=== PATIENT | female | born 1970 | race Caucasian/White ===

== ENCOUNTER 2017-11-19 22:42 | Emergency (ER) | payer MEDICAID ==
[~2017-11-19] VITALS: Ht 157.5 cm; Wt 46.7 kg
[~2017-11-19 22:42] MED LIST: ALBU8.5H8 INH; CLOT15CR10 TP; CYAN100067 PO; LACT10SO66 PO; PANT40TA4 PO; PARO-41 PO; PHEN51CR RC; PROP10TA10 PO; THIA100T13 PO; TRAM50TA92 PO; TRAZ-123 PO
[2017-11-19 23:00] VITALS: BP_SYST 121
[2017-11-20 00:06] LABS: BASOPHILS % (AUTO) 0.3 % (0.0-2.0); EOSINOPHILS # (AUTO) 0.3 K/uL (0.0-0.4); EOSINOPHILS % (AUTO) 2.8 % (0.0-4.0); HEMATOCRIT 24.5 % (36-48); HEMOGLOBIN 8.4 g/dL (12.0-16.0); LYMPHOCYTES # (AUTO) 1.4 K/uL (1.0-5.5); LYMPHOCYTES % (AUTO) 14.5 % (20.5-51.5); MEAN CORPUSCULAR HEMOGLOBIN 36 pg (27-31); MEAN CORPUSCULAR HGB CONC 34 % (32-36); MEAN CORPUSCULAR VOLUME 105 fL (79.0-98.0); MONOCYTES % (AUTO) 10.4 % (1.7-9.3); NEUTROPHILS # (AUTO) 6.6 K/uL (1.8-7.7); PLATELET COUNT (AUTO) 94 K/uL (130-430); RED BLOOD CELL COUNT(AUTO) 2.33 MIL/uL (4.2-6.2); RED CELL DISTRIBUTION WIDTH 16.1 % (9.0-15.0); WHITE BLOOD COUNT (AUTO) 9.3 K/uL (4.8-10.8)
[2017-11-20 00:09] LABS: BILIRUBIN,URINE 3+ (NEGATIVE); BLOOD, URINE 2+ (NEGATIVE); CLARITY/URINE CLEAR (CLEAR); COLOR,URINE YELLOW (YELLOW); GLUCOSE,URINE NEGATIVE (NEGATIVE); KETONES,URINE NEGATIVE (NEGATIVE); LEUKOCYTE ESTERASE ,URINE NEGATIVE (NEGATIVE); NITRITE, URINE NEGATIVE (NEGATIVE); PH,URINE 5.5 (5.0-8.0); PROTEIN URINE NEGATIVE (NEGATIVE)
[2017-11-20 00:17] LABS: CREATININE 0.8 mg/dL (0.55-1.30); POTASSIUM 3.8 mmol/L (3.5-5.1)
[2017-11-20 00:19] LABS: INR 1.7 (0.8-1.2)
[2017-11-20 00:23] LABS: ALBUMIN 2.7 g/dL (3.4-4.8)
[2017-11-20 00:31] LABS: TOTAL BILIRUBIN 15.8 mg/dL (0.0-1.0)
[2017-11-20 00:44] LABS: PROTHROMBIN TIME 17.9 SECS (9.5-12.5)
[2017-11-20 00:45] LABS: BACTERIA,URINE FEW /HPF (None Seen); WBC,URINE 0-3 /HPF (0-3)
[2017-11-20] MEDS ORDERED: DIPHENHYDRAMINE INJ 50 MG/ML VIAL IM ONE (03:15)
[2017-11-20] MEDS ORDERED: MORPHINE 4 MG/ML INJ. SYRINGE IVP ONE (03:15)
[2017-11-20 03:30] VITALS: BP_SYST 110
== END 2017-11-20 03:30 | disposition home or self-care (01) ==
LOC: SED 22:42
DX: K74.60 Unspecified cirrhosis of liver (principal); D64.9 Anemia, unspecified; J44.9 Chronic obstructive pulmonary disease, unspecified; N18.6 End stage renal disease; F41.9 Anxiety disorder, unspecified; F32.9 Major depressive disorder, single episode, unspecified; Z79.899 Other long term (current) drug therapy; F17.200 Nicotine dependence, unspecified, uncomplicated
CPT/HCPCS: 36415; 71045; 74176; 80053; 81000; 82140; 83605; 85025; 85610; 85730; 87040; 87086; 96372; 99285; J1200; J2270

== ENCOUNTER 2017-12-05 04:26 | Emergency (ER) | payer MEDICAID ==
[~2017-12-05] VITALS: Ht 157.5 cm; Wt 49.0 kg
[~2017-12-05 04:26] MED LIST changes: -ALBU8.5H8 INH; -CLOT15CR10 TP; +CYAN100010 PO; -CYAN100067 PO; +FURO-149 PO; +HYDR-551 PO; +SPIR25TA PO
[2017-12-05 04:31] VITALS: BP_SYST 93
[2017-12-05 05:33] LABS: BILIRUBIN,URINE 3+ (NEGATIVE); BLOOD, URINE 1+ (NEGATIVE); CLARITY/URINE CLEAR (CLEAR); COLOR,URINE YELLOW (YELLOW); GLUCOSE,URINE TRACE (NEGATIVE); KETONES,URINE TRACE (NEGATIVE); LEUKOCYTE ESTERASE ,URINE 2+ (NEGATIVE); NITRITE, URINE NEGATIVE (NEGATIVE); PH,URINE 5.5 (5.0-8.0); PROTEIN URINE NEGATIVE (NEGATIVE)
[2017-12-05] MEDS ORDERED: ONDA4TAB22 PO (05:52)
[2017-12-05] MEDS ORDERED: PROC5TAB PO (05:52)
[2017-12-05] MEDS ORDERED: FERR-57 PO (05:52)
[2017-12-05] MEDS ORDERED: PROP10TA10 PO (05:52)
[2017-12-05] MEDS ORDERED: PRO10 PO (05:52)
[2017-12-05] MEDS ORDERED: TRAM50TA92 PO (05:52)
[2017-12-05] MEDS ORDERED: MORP15TA PO (05:52)
[2017-12-05] MEDS ORDERED: CEPH-568 PO (05:52)
[2017-12-05 05:58] LABS: BACTERIA,URINE MODERATE /HPF (None Seen)
[2017-12-05] MEDS ORDERED: MORPHINE 2 MG/ML INJ. SYRINGE IM ONE (06:00)
[2017-12-05] MEDS ORDERED: MORPHINE 4 MG/ML INJ. SYRINGE IVP ONE (06:00)
[2017-12-05] MEDS ORDERED: cefTRIAXone 1 GM IVPB PREMIX 50 ML IV ONE (06:00)
[2017-12-05] MEDS ORDERED: MORPHINE 2 MG/ML INJ. SYRINGE IVP ONE (06:30)
[2017-12-05] MEDS ORDERED: NACL 0.9% 1,000 ML IV ONE (06:40)
[2017-12-05 07:30] VITALS: BP_SYST 98
[2017-12-19] MEDS ORDERED: TEMA15CA5 PO (23:07)
[2017-12-19] MEDS ORDERED: THIA100T70 PO (23:07)
== END 2017-12-05 07:30 | disposition home or self-care (01) ==
LOC: SED 04:26
DX: N39.0 Urinary tract infection, site not specified (principal); J44.9 Chronic obstructive pulmonary disease, unspecified; F41.9 Anxiety disorder, unspecified; F32.9 Major depressive disorder, single episode, unspecified; Z86.2 Personal history of diseases of the blood and blood-forming organs and certain disorders involving the immune mechanism; Z88.1 Allergy status to other antibiotic agents; Z79.899 Other long term (current) drug therapy
CPT/HCPCS: 81000; 87086; 87186; 96365; 96375; 99284; J0696; J2270; J7030; 96374

== ENCOUNTER 2017-12-18 05:28 | Emergency (ER) | payer MEDICAID ==
[~2017-12-18] VITALS: Ht 157.5 cm; Wt 51.7 kg
[2017-12-18 05:28] VITALS: BP_SYST 110
[~2017-12-18 05:28] MED LIST changes: +CEPH-568 PO; -CYAN100010 PO; +CYAN100067 PO; +FERR-57 PO; +FLUO10CA65 PO; -HYDR-551 PO; -LACT10SO66 PO; +MORP15TA PO; +ONDA4TAB22 PO; -PHEN51CR RC; +PROC5TAB PO
--- NOTE | 2017-12-18 05:30 | NUR ---
Placed in room 06 . Placed on welder gas, blood pressure machine and pulse oximeter. To gown for exam. Side rails up. Report given to KATHRYN Messina.
--- NOTE | 2017-12-18 05:40 | NUR ---
Patient brought to ER by BLS from home C/O 5/10 diffuse abdominal pain since midnight. Also C/O diarrhea. HX liver cirrhosis. Mild confusion and upper extremities tremors noted. +2, abdomen large distended, tender with palpation. Generalized jaundice, sclera icterus. Pitting edema on lower extremities. Calm and cooperative, AAOx2, unlabored breathing, no signs of acute distress.
--- NOTE | 2017-12-18 05:46 | NUR ---
ER MD Bhakta at bedside evaluating the patient
--- NOTE | 2017-12-18 06:00 | NUR ---
# 22 gauge angiocath placed to RIGHT AC. Use of asceptic technique. Opsite placed over site. Blood return noted. Blood for lab drawn from site. Flushed with 10 cc of normal saline. No evidence of infiltration noted. Patient tolerated well.
[2017-12-18] MEDS ORDERED: NACL 0.9% 1,000 ML IV ONE (06:06)
--- NOTE | 2017-12-18 06:27 | NUR ---
Medication reconciliation completed with information provided by - Patient states no changes in home meds. Any prior medication reconciliation on file was reviewed and corrected.
[2017-12-18 06:37] LABS: HEMATOCRIT 22.9 % (36-48); HEMOGLOBIN 7.8 g/dL (12.0-16.0); MEAN CORPUSCULAR HEMOGLOBIN 32 pg (27-31); MEAN CORPUSCULAR HGB CONC 34 % (32-36); MEAN CORPUSCULAR VOLUME 94 fL (79.0-98.0); PLATELET COUNT (AUTO) 102 K/uL (130-430); RED BLOOD CELL COUNT(AUTO) 2.43 MIL/uL (4.2-6.2); RED CELL DISTRIBUTION WIDTH 18.3 % (9.0-15.0); WHITE BLOOD COUNT (AUTO) 8.7 K/uL (4.8-10.8)
[2017-12-18 06:38] LABS: BILIRUBIN,URINE 3+ (NEGATIVE); BLOOD, URINE 2+ (NEGATIVE); CLARITY/URINE SL HAZY (CLEAR); COLOR,URINE ORANGE (YELLOW); GLUCOSE,URINE TRACE (NEGATIVE); KETONES,URINE TRACE (NEGATIVE); LEUKOCYTE ESTERASE ,URINE NEGATIVE (NEGATIVE); NITRITE, URINE NEGATIVE (NEGATIVE); PH,URINE 5.5 (5.0-8.0); PROTEIN URINE NEGATIVE (NEGATIVE)
[2017-12-18 06:38] LABS: CALCIUM 8.2 mg/dL (8.4-11.0); CREATININE 1.08 mg/dL (0.55-1.30); POTASSIUM 3.7 mmol/L (3.5-5.1)
[2017-12-18 06:42] LABS: INR 1.6 (0.8-1.2); PROTHROMBIN TIME 16.4 SECS (9.5-12.5)
[2017-12-18 06:45] LABS: ALBUMIN 2.1 g/dL (3.4-4.8); TOTAL BILIRUBIN 13.7 mg/dL (0.0-1.0)
[2017-12-18 06:57] LABS: BACTERIA,URINE FEW /HPF (None Seen); WBC,URINE 0-3 /HPF (0-3)
[2017-12-18 06:59] LABS: BARBITURATE, URINE NEGATIVE (NEG <=200); BENZODIAZEPINE, URINE POSITIVE (NEG <=150); CANNABINOID, URINE NEGATIVE (NEG <=50); COCAINE, URINE NEGATIVE (NEG <=150); METHAMPHETAMINES SCREEN,URINE NEGATIVE (NEG <=500); OPIATE, URINE POSITIVE (NEG <=100); PHENCYCLIDINE SCREEN,URINE NEGATIVE (NEG <=25); UR TRICYCLIC ANTIDEPRESSANTS NEGATIVE (NEG <=300); URINE AMPHETAMINE NEGATIVE (NEG <=500); URINE METHADONE NEGATIVE (NEG <=200); URINE OXYCODONE SCREEN NEGATIVE (NEG <=100); URINE PROPOXYPHENE SCREEN NEGATIVE (NEG <=300)
--- NOTE | 2017-12-18 07:01 | NUR ---
Patient verbalized to the nurse that she does not wishes to be admitted. ER MD Bhakta aware.
--- NOTE | 2017-12-18 07:09 | NUR ---
ER MD Bhakta at bedside discussing admission and plan of care.
[2017-12-18 07:11] LABS: BAND % (MANUAL) 4 % (0-6); LYMPHOCYTES % (MANUAL) 27 % (20-46); MONOCYTES % (MANUAL) 4 % (0-11)
[2017-12-18 07:12] VITALS: BP_SYST 120
[2017-12-18 07:12] LABS: BASOPHILS % (MANUAL) 0 % (0-2); EOSINOPHILS % (MANUAL) 0 % (0-7)
--- NOTE | 2017-12-18 07:12 | NUR ---
Patient does not wish to proceed with medical care recommended by ER MD Bhakta. Patient given information related to possible complications, up to and including , which could occur as a result of leaving hospital at this time. Patient verbalizes understanding of risks involved leaving against medical advice. Patient has signed AMA form.
[2017-12-18 08:28] LABS: ACETAMINOPHEN < 1 ug/mL (1-30)
[2017-12-19] MEDS ORDERED: TEMA15CA51 PO (23:07)
[2017-12-19] MEDS ORDERED: THIA100T70 PO (23:07)
== END 2017-12-18 07:12 | disposition left against medical advice (07) ==
LOC: SED 05:28
DX: K70.31 Alcoholic cirrhosis of liver with ascites (principal); K85.20 Alcohol induced acute pancreatitis without necrosis or infection; D69.6 Thrombocytopenia, unspecified; J44.9 Chronic obstructive pulmonary disease, unspecified; Z88.1 Allergy status to other antibiotic agents; Z79.899 Other long term (current) drug therapy
CPT/HCPCS: 36415; 71045; 80053; 80307; 81000; 81025; 82140; 82150; 82550; 83690; 85007; 85027; 85610; 85730; 93005; 96360; 99285; G0480; G0481; G0482; J7030

== ENCOUNTER 2018-01-07 03:56 | Inpatient (IN) | payer MEDICAID ==
[~2018-01-07] VITALS: Ht 157.5 cm; Wt 58.1 kg
[~2018-01-07 03:56] MED LIST changes: -CEPH-568 PO; +CYAN100010 PO; -CYAN100067 PO; -FERR-57 PO; -FLUO10CA65 PO; -ONDA4TAB22 PO; -PARO-41 PO; +PRO10 PO; +TEMA15CA5 PO; -THIA100T13 PO; +THIA100T70 PO
[2018-01-07 03:58] VITALS: BP_SYST 119
--- NOTE | 2018-01-07 03:58 | NUR ---
Placed in room 04 . Placed on cardiac sonographer, blood pressure machine and pulse oximeter. To gown for exam. Side rails up. Report given to KATHRYN Hatfield.
--- NOTE | 2018-01-07 03:59 | NUR ---
Patient came from home and brought to ED via ambulance. Patient complains of abdominal pain x 4 days. Patient's vital signs WNL. Patient has a Hx of liver cirrhosis and left breast CA. No respiratory distress noted at this time.
--- NOTE | 2018-01-07 04:00 | NUR ---
ER at bedside examining patient.
[2018-01-07] MEDS ORDERED: NACL 0.9% 1,000 ML IV ONE (04:15)
[2018-01-07] MEDS ORDERED: ONDANSETRON HCL 4 MG/2 ML VIAL IVP ONE (04:15)
[2018-01-07] MEDS ORDERED: MORPHINE 4 MG/ML INJ. SYRINGE IVP ONE (04:15)
[2018-01-07] MEDS ORDERED: FOLIC ACID 1 MG, THIAMINE HCL 100 MG, MAGNESIUM SULFATE 1 GM, MVI 10 ML in NACL 0.9% 1,... IV ONE (04:30)
--- NOTE | 2018-01-07 04:40 | NUR ---
# 24 gauge angiocath placed to left hand. Use of asceptic technique. Opsite placed over site. Blood return noted. Blood for lab drawn from site. Flushed with 10 cc of normal saline. No evidence of infiltration noted. Patient tolerated well.
--- NOTE | 2018-01-07 05:00 | NUR ---
UA not yet done UA not yet done due patient cannot produce urine at this time. Will continue to monitor.
[2018-01-07] MEDS ORDERED: THIAMINE HCL 100 MG/ML VIAL ONE (05:04)
[2018-01-07] MEDS ORDERED: FOLIC ACID 5 MG/ML VIAL IV ONE (05:04)
[2018-01-07] MEDS ORDERED: MVI 10 ML VIAL IV ONE (05:04)
[2018-01-07] MEDS ORDERED: MAGNESIUM SULFATE 1 GM/2 ML VIAL ONE (05:04)
[2018-01-07 05:18] LABS: CALCIUM 8.8 mg/dL (8.4-11.0); SODIUM SERUM 129 mmol/L (136-145); UREA NITROGEN, BLOOD 28 mg/dL (8-21)
[2018-01-07 05:19] LABS: MEAN CORPUSCULAR HEMOGLOBIN 31 pg (27-31); MEAN CORPUSCULAR HGB CONC 33 % (32-36); MEAN CORPUSCULAR VOLUME 93 fL (79.0-98.0); PLATELET COUNT (AUTO) 140 K/uL (130-430); RED BLOOD CELL COUNT(AUTO) 2.57 MIL/uL (4.2-6.2); RED CELL DISTRIBUTION WIDTH 20.4 % (9.0-15.0); WHITE BLOOD COUNT (AUTO) 10.9 K/uL (4.8-10.8)
[2018-01-07 05:20] LABS: INR 1.6 (0.8-1.2)
[2018-01-07 05:21] LABS: ALANINE AMINOTRANSFERASE 27 U/L (12-78); ALBUMIN 2.4 g/dL (3.4-4.8); AMYLASE 68 U/L (0-100); LIPASE 543 U/L (73-393); TOTAL BILIRUBIN 12.3 mg/dL (0.0-1.0)
[2018-01-07] MEDS ORDERED: CEPH-568 PO (05:21)
[2018-01-07] MEDS ORDERED: SERT25TA PO (05:21)
--- NOTE | 2018-01-07 05:21 | NUR ---
Medication reconciliation completed with information provided by Patient sister with patient's own medication bottles. Any prior medication reconciliation on file was reviewed and corrected.
[2018-01-07 05:38] LABS: ANION GAP 10 (5-15); ASPARTATE AMINOTRANSFERASE 81 U/L (10-37); CHLORIDE 96 mmol/L (98-107); CREATININE 1.31 mg/dL (0.55-1.30); GLUCOSE 189 mg/dL (70-99)
--- NOTE | 2018-01-07 05:40 | NUR ---
Urine collected for UA. Specimen sent to lab.
[2018-01-07 05:41] LABS: ACETAMINOPHEN < 1 ug/mL (1-30); ALCOHOL, BLOOD < 3 mg/dL (<10); GFR AFRICAN AMERICAN 56 mL/min (>90)
--- NOTE | 2018-01-07 05:48 | NUR ---
Patient's mother at bedside. According to her the patient fell earlier this morning but no bowling or bruises. The patient verbalized that she fell on her ride side but no pain. Informed jalil Barnett about this. No new orders given at this time. Will continue to monitor.
[2018-01-07 05:59] LABS: BILIRUBIN,URINE 2+ (NEGATIVE); BLOOD, URINE NEGATIVE (NEGATIVE); CLARITY/URINE CLEAR (CLEAR); COLOR,URINE YELLOW (YELLOW); GLUCOSE,URINE NEGATIVE (NEGATIVE); KETONES,URINE NEGATIVE (NEGATIVE); LEUKOCYTE ESTERASE ,URINE TRACE (NEGATIVE); NITRITE, URINE NEGATIVE (NEGATIVE); PH,URINE 5.5 (5.0-8.0); PROTEIN URINE NEGATIVE (NEGATIVE); UROBILINOGEN,URINE 0.2 (0.2-1.0)
[2018-01-07] MEDS ORDERED: LACTULOSE 20 GM/30 ML UDC PO ONE ×2 (06:15→12:00)
[2018-01-07 06:17] LABS: BASOPHILS % (MANUAL) 0 % (0-2); EOSINOPHILS % (MANUAL) 1 % (0-7); LYMPHOCYTES % (MANUAL) 14 % (20-46); MONOCYTES % (MANUAL) 6 % (0-11)
[2018-01-07 06:21] LABS: BACTERIA,URINE FEW /HPF (None Seen); MUCUS,URINE 1+ /LPF (None Seen); RBC,URINE 0-3 /HPF (0-3)
[2018-01-07 06:24] LABS: BARBITURATE, URINE NEGATIVE (NEG <=200); BENZODIAZEPINE, URINE NEGATIVE (NEG <=150); CANNABINOID, URINE NEGATIVE (NEG <=50); COCAINE, URINE NEGATIVE (NEG <=150); METHAMPHETAMINES SCREEN,URINE NEGATIVE (NEG <=500); OPIATE, URINE POSITIVE (NEG <=100); PHENCYCLIDINE SCREEN,URINE NEGATIVE (NEG <=25); UR TRICYCLIC ANTIDEPRESSANTS NEGATIVE (NEG <=300); URINE AMPHETAMINE NEGATIVE (NEG <=500); URINE METHADONE NEGATIVE (NEG <=200); URINE OXYCODONE SCREEN NEGATIVE (NEG <=100); URINE PROPOXYPHENE SCREEN NEGATIVE (NEG <=300)
--- NOTE | 2018-01-07 06:45 | NUR ---
ADMITTED TO TELE Patient admitted to tele. Dr. Martinez as admitting doctor. Patient will be admitted to 110B.
--- NOTE | 2018-01-07 07:09 | NUR ---
CONSULTATION CALLED REASON FOR CONSULTATION: pleural effusion WAS CONSULT CALLED? y PERSON WHO WAS NOTIFIED: Opal CONSULTING PHYSICIAN: Dr. Murillo PICKER BOX OPERATOR PHONE NUMBER: [phone] ORDERING PHYSICIAN: Dr. Martinez
--- NOTE | 2018-01-07 07:09 | NUR ---
CONSULTATION PAGED REASON FOR CONSULTATION:ALCOHOLIC PANCREATITIS WAS CONSULT CALLED?Y PERSON WHO WAS NOTIFIED:NANCY CONSULTING PHYSICIAN:DIA MONTERO (FRANCIS PERERA TRANSITION ADVISOR) GLOBAL HUMAN RESOURCES DIRECTOR SPECIALTY:GI GLOBAL HUMAN RESOURCES DIRECTOR PHONE NUMBER:[phone] ORDERING PHYSICIAN:SIDDHARTHA PEARL
--- NOTE | 2018-01-07 07:13 | NUR ---
Admission Note Received patient from ER with diagnosis of alcoholic pancretitis. Initial Plan of Care discussed-patient verbalized understanding. Family at bedside. Oriented to room, call light, pain management and safety.
--- NOTE | 2018-01-07 07:15 | NUR ---
Patient transferred to tele 110B Tele for admission under Dr. Martinez. Patient endorsed to am admitting nurse Noelle. Report given at bedside. Patient's mother at bedside in ER and at bedside in Tele and verbalized that she will take home all patient's belongings.
[2018-01-07 07:21] VITALS: BP_SYST 118
--- NOTE | 2018-01-07 08:20 | NUR ---
Patient received a/ox4, denies pain, skin jaundiced, abdomen distended, assessment complete, IV line is patent and infusing well, educated the patient and family on plan of care, call light system and safety precautions, they verbalized understanding, bed in lowest position, three side rails up, bed alarm on, call light placed within reach, fall and aspiration precautions in place.
--- NOTE | 2018-01-07 09:40 | NUR ---
Dr. Murillo rounds updates given on patient, will follow up with any new orders.
--- NOTE | 2018-01-07 09:50 | NUR ---
Nutrition Update Daryl Scale 15 noted. Pt admitted for alcoholic pancreatitis. Diet: NPO BMI: 23.4 kg/m2 RD to follow per nutrition care standards.
[2018-01-07] MEDS ORDERED: IPRATROPIUM/ALBUTEROL SULFATE 3 ML AMPUL.NEB INH PRN (10:30)
[2018-01-07] MEDS: D5NS 1,000 ML IV SCH (11:11)
[2018-01-07] MEDS ORDERED: MORPHINE 2 MG/ML INJ. SYRINGE IVP PRN (11:30)
[2018-01-07] MEDS ORDERED: LORazepam 2 MG/ML VIAL IVP PRN (11:30)
[2018-01-07] MEDS ORDERED: ACETAMINOPHEN 325 MG TABLET PO PRN (11:30)
[2018-01-07] MEDS ORDERED: MAGNESIUM SULFATE 50 ML IV PRN (11:30)
[2018-01-07] MEDS ORDERED: MUPIROCIN 2% TOPICAL OINTMENT 22 GM NS PRN (11:30)
[2018-01-07] MEDS ORDERED: MORPHINE SULFATE 30 MG Immediate Release TABLET PO PRN (11:30)
[2018-01-07] MEDS ORDERED: DOCUSATE SODIUM 100 MG CAPSULE PO PRN (11:30)
[2018-01-07] MEDS ORDERED: POTASSIUM CHLORIDE 20 MEQ TAB.PRT.SR PO PRN (11:30)
--- NOTE | 2018-01-07 11:30 | NUR ---
Dr. Martinez rounds assessed patient at bedside, will follow up with any new orders.
--- NOTE | 2018-01-07 11:37 | NUR ---
CONSULTATION PAGED REASON FOR CONSULTATION:DEPRESSION WAS CONSULT CALLED?Y PERSON WHO WAS NOTIFIED:SYLWIA CONSULTING PHYSICIAN:FRANCISCA DUMONT CENTRIFUGAL SUPERVISOR SPECIALTY:PSYCH CENTRIFUGAL SUPERVISOR PHONE NUMBER:[phone] ORDERING PHYSICIAN[facility]
[2018-01-07] MEDS ORDERED: DIATR MEGLU/DIATRIZ SOD 30 ML SOLUTION PO ONE (11:53)
[2018-01-07 12:28] VITALS: BP_SYST 113
[2018-01-07] MEDS: ONDANSETRON HCL 4 MG/2 ML VIAL IVP PRN (12:34)
[2018-01-07] MEDS: PIPERACILLIN/TAZO 2.25G/DEX-IS 50 ML IV SCH ×3 (12:34→23:29)
--- NOTE | 2018-01-07 12:41 | NUR ---
RN rounds/medication patient resting in bed, drinking contrast medium (ok for patient to drink PO contrast per Dr. Martinez), educated the patient and family on medications uses and potential side effects, they verbalized understanding and tolerated well, IV line is patent and infusing well, continuing to monitor, bed in lowest position, three side rails up, bed alarm on, call light within reach, fall and aspiration precautions in place.
[2018-01-07] MEDS ORDERED: IOHEXOL 100 ML IV ONE (13:45)
--- NOTE | 2018-01-07 13:52 | NUR ---
Patient off the unit to CT scan at this time.
--- NOTE | 2018-01-07 14:00 | NUR ---
Patient back on the unit stable condition.
[2018-01-07] MEDS: MORPHINE 2 MG/ML INJ. SYRINGE IVP PRN (15:32)
--- NOTE | 2018-01-07 15:32 | NUR ---
Pain medication patient resting in bed, awake, states moderate pain level at this time, educated her on pain medication uses and potential side effects, she verbalized understanding and tolerated well, IV line is patent and infusing well, continuing to monitor, bed in lowest position, three side rails up, bed alarm on, call light within reach, family at bedside, fall and aspiration precautions in place
[2018-01-07 15:40] VITALS: BP_SYST 113
[2018-01-07] MEDS: IPRATROPIUM/ALBUTEROL SULFATE 3 ML AMPUL.NEB INH SCH ×2 (15:40→20:10)
[2018-01-07 16:26] VITALS: BP_SYST 109
--- NOTE | 2018-01-07 16:56 | NUR ---
Dr. Chamorro rounds spoke with family at length, will follow up with any new orders.
[2018-01-07] MEDS ORDERED: PHYTONADIONE 10 MG/ML AMP PO ONE (17:15)
--- NOTE | 2018-01-07 17:51 | NUR ---
Medications patient resting in bed, awake, denies pain, educated her on new medication uses and potential side effects per Dr. Chamorro, she verbalized understanding and tolerated well, assisted the patient to have some of the clear liquids on her tray, aspiration precautions in place, IV line is patent and infusing well, bed in lowest position, three side rails up, bed alarm on, call light within reach, fall and aspiration precautions in place.
--- NOTE | 2018-01-07 18:25 | NUR ---
Closing note patient resting in bed, awake, being assisted by family to eat this time, all needs met, will endorse report to NOC shift nurse, bed in lowest position, three side rails up, bed alarm on, call light within reach, fall and aspiration precautions in place.
--- NOTE | 2018-01-07 19:15 | NUR ---
OPENING NOTES RECEIVED PATIENT IN BED AAO X4. FAMILY AT BEDSIDE. BREATHING UNLABORED. IVF INFUSING ORDERED. PLAN OF CARE REVIEWED WITH PATIENT. CALL LIGHT WITHIN EASY REACH. BED ALARM ON.
[2018-01-07 20:08] VITALS: BP_SYST 121
[2018-01-07] MEDS ORDERED: prednisoLONE 15 MG/5 ML UDC PO SCH (20:30)
[2018-01-07] MEDS: traZODone HCL 50 MG TABLET (DESYREL) PO SCH (20:51)
[2018-01-07] MEDS ORDERED: prednisoLONE 15 MG/5 ML UDC ONE (20:51)
--- NOTE | 2018-01-07 20:51 | NUR ---
MED PASS DUE MEDICATIONS GIVEN AND TOLERATED. FAMILY AT BEDSIDE.
[2018-01-07] MEDS: PROPRANOLOL HCL 10 MG TABLET (INDERAL) PO SCH (21:00)
[2018-01-07] MEDS ORDERED: LACTULOSE 20 GM/30 ML UDC PO SCH (21:00)
[2018-01-08 00:54] VITALS: BP_SYST 124
--- NOTE | 2018-01-08 00:55 | NUR ---
ROUNDS PATIENT RESTING IN BED. VITAL SIGNS STABLE. NO DISTRESS NOTED. BED ALARM ON. CALL LIGHT WITHIN EASY REACH.
--- NOTE | 2018-01-08 03:24 | NUR ---
ROUNDS PATIENT RESTING IN BED. MOTHER AT BEDSIDE. IVF CONTINUOUSLY INFUSING ORDERED. BED IN LOWEST LOCKED POSITION. CALL LIGHT WITHIN EASY REACH. BED ALARM ON.
[2018-01-08 04:30] VITALS: BP_SYST 123
[2018-01-08] MEDS: ONDANSETRON HCL 4 MG/2 ML VIAL IVP PRN (04:36)
[2018-01-08] MEDS: MORPHINE 2 MG/ML INJ. SYRINGE IVP PRN (04:44)
--- NOTE | 2018-01-08 04:44 | NUR ---
PAIN MGT MEDICATED WITH MORPHINE 1 MG IVP FOR C/O LOWER ABDOMINAL PAIN 11/02. PATIENT MOTHER REMAINS AT BEDSIDE.
[2018-01-08] MEDS: PIPERACILLIN/TAZO 2.25G/DEX-IS 50 ML IV SCH ×4 (06:08→23:57)
--- NOTE | 2018-01-08 06:08 | NUR ---
ATB DUE ATB ZOSYN INFUSED. IV LINE INTACT. CALL LIGHT WITHIN REACH. BED ALARM ON.
[2018-01-08] MEDS: D5NS 1,000 ML IV SCH ×3 (06:09→23:58)
--- NOTE | 2018-01-08 06:49 | NUR ---
CLOSING NOTES PATIENT RESTING IN BED. IVF CONTINUOUSLY INFUSING ORDERED. TOLERATING CLEAR LIQUIDS. MOTHER AT BEDSIDE. NEEDS ATTENDED. CALL LIGHT WITHIN EASY REACH. BED IN LOWEST LOCKED POSITION. BED ALARM ON.
[2018-01-08 06:51] LABS: CALCIUM 8.6 mg/dL (8.4-11.0); CREATININE 1.11 mg/dL (0.55-1.30); POTASSIUM 4.5 mmol/L (3.5-5.1)
[2018-01-08 07:06] LABS: ALBUMIN 2.2 g/dL (3.4-4.8); TOTAL BILIRUBIN 12.2 mg/dL (0.0-1.0)
[2018-01-08 07:15] LABS: HEMATOCRIT 22.6 % (36-48); HEMOGLOBIN 7.7 g/dL (12.0-16.0); MEAN CORPUSCULAR HEMOGLOBIN 32 pg (27-31); MEAN CORPUSCULAR HGB CONC 34 % (32-36); MEAN CORPUSCULAR VOLUME 94 fL (79.0-98.0); PLATELET COUNT (AUTO) 130 K/uL (130-430); RED CELL DISTRIBUTION WIDTH 20.8 % (9.0-15.0); WHITE BLOOD COUNT (AUTO) 6.8 K/uL (4.8-10.8)
[2018-01-08 08:00] VITALS: BP_SYST 124
--- NOTE | 2018-01-08 08:00 | NUR ---
Opening Note Report received from [facility] shift nurse. Patient is currently in bed. Mother is at the beside. Patient is currently sleeping and no signs of distress noted. IV is on the left hand 24g running D5NS@60. Call light is within reach and bed is in low position. Will continue to monitor.
[2018-01-08] MEDS: IPRATROPIUM/ALBUTEROL SULFATE 3 ML AMPUL.NEB INH SCH ×3 (08:15→20:49)
[2018-01-08] MEDS ORDERED: LACTULOSE 20 GM/30 ML UDC PO ONE (09:00)
[2018-01-08] MEDS ORDERED: SERTRALINE HCL 50 MG TABLET PO SCH (09:00)
[2018-01-08 09:12] LABS: BAND % (MANUAL) 1 % (0-6); LYMPHOCYTES % (MANUAL) 6 % (20-46)
[2018-01-08 09:13] LABS: BASOPHILS % (MANUAL) 0 % (0-2); EOSINOPHILS % (MANUAL) 0 % (0-7); MONOCYTES % (MANUAL) 0 % (0-11)
[2018-01-08] MEDS: FLUoxetine HCL 10 MG CAPSULE (PROzac) PO SCH (09:50)
[2018-01-08] MEDS: CYANOCOBALAMIN 1000 mCg TABLET PO SCH (09:50)
[2018-01-08] MEDS: RIFAXIMIN 200 MG TABLET PO SCH ×2 (09:50→21:09)
[2018-01-08] MEDS: PANTOPRAZOLE SODIUM 40 MG TAB PO SCH (09:51)
[2018-01-08] MEDS: PROPRANOLOL HCL 10 MG TABLET (INDERAL) PO SCH ×2 (09:52→21:10)
[2018-01-08] MEDS: FUROSEMIDE 40 MG TABLET PO SCH (09:53)
[2018-01-08] MEDS: SPIRONOLACTONE 25 MG TABLET (ALDACTONE) PO SCH (09:53)
--- NOTE | 2018-01-08 10:10 | NUR ---
Rounds Patient is currently resting in bed. No signs of distress noted at the moment.
[2018-01-08] MEDS ORDERED: LIDOCAINE 1%, 20 ML MDV 20 ML ONE (11:10)
--- NOTE | 2018-01-08 12:45 | NUR ---
RN Notes US guided parcentesis was done at the bedside per MD orders. 1700ml were removed. Fluid was sent to the lab.
--- NOTE | 2018-01-08 14:20 | NUR ---
Rounds Patient is in stable condition. Iv is on the left hand 24g running D5NS@60.
[2018-01-08 14:37] VITALS: BP_SYST 120
[2018-01-08 15:22] LABS: RBC, BODY FLUID 112 /uL
[2018-01-08 15:30] LABS: WBC, BODY FLUID 49 /uL
[2018-01-08] MEDS: LACTULOSE 20 GM/30 ML UDC PO SCH ×2 (15:52→21:09)
[2018-01-08 16:07] VITALS: BP_SYST 106
--- NOTE | 2018-01-08 16:37 | NUR ---
Rounds Patient is resting in bed. No change in patient condition. Family is at the bedside.
--- NOTE | 2018-01-08 18:04 | NUR ---
Closing Note Patient is currently sleeping in bed. No change in condition throughout the shift. IV is on the left hand 24g running D5NS@60. Call light is within reach and bed is in low position. Will endorse care to the oncoming nurse.
--- NOTE | 2018-01-08 19:35 | NUR ---
ROUNDS PATIENT RESTING COMFORTABLY IN BED, NOT IN DISTRESS, VITALS STABLE. DENIES ANY PAIN AND DISCOMFORT AT THIS TIME. ASSESSMENT DONE AND DOCUMENTED. SEE FLOWSHEET. NEEDS ATTENDED TO. SAFETY AND FALL PRECAUTION MEASURES IN PLACED. BED IN LOW AND LOCKED POSITION. CALL LIGHT PLACED WITHIN REACH.
[2018-01-08] MEDS: traZODone HCL 50 MG TABLET (DESYREL) PO SCH (21:10)
--- NOTE | 2018-01-08 21:14 | NUR ---
MEDICATION DUE MEDICATIONS GIVEN SCHEDULED, TOLERATED WELL. WILL CONTINUE TO MONITOR.
--- NOTE | 2018-01-09 00:05 | NUR ---
PATIENT RESTING: Patient resting quietly. No acute distress noted. Vital signs within normal range.
[2018-01-09 00:24] VITALS: BP_SYST 110
--- NOTE | 2018-01-09 02:14 | NUR ---
ROUNDS PATIENT ASLEEP, NOT IN DISTRESS, NO SIGNS OF ANY PAIN AND DISCOMFORT AT THIS TIME. WILL CONTINUE TO MONITOR.
--- NOTE | 2018-01-09 04:12 | NUR ---
PATIENT RESTING: Patient resting quietly. No acute distress noted. Vital signs within normal range.
[2018-01-09] MEDS: PIPERACILLIN/TAZO 2.25G/DEX-IS 50 ML IV SCH ×3 (05:47→17:35)
--- NOTE | 2018-01-09 06:52 | NUR ---
CLOSING NOTES PATIENT RESTING COMFORTABLY AT THIS TIME, VITALS STABLE, N O PAIN AND DISCOMFORT AT THIS TIME. ALL NEEDS ATTENDED TO. CALL LIGHT PLACED WITHIN REACH.
[2018-01-09 07:05] LABS: CALCIUM 8.2 mg/dL (8.4-11.0); CREATININE 1.15 mg/dL (0.55-1.30); POTASSIUM 4.1 mmol/L (3.5-5.1)
[2018-01-09 07:06] LABS: INR 1.6 (0.8-1.2); PROTHROMBIN TIME 16.1 SECS (9.5-12.5)
[2018-01-09 07:16] LABS: TOTAL BILIRUBIN 11.7 mg/dL (0.0-1.0)
[2018-01-09] MEDS: IPRATROPIUM/ALBUTEROL SULFATE 3 ML AMPUL.NEB INH SCH ×2 (07:19→16:51)
[2018-01-09 07:24] LABS: HEMOGLOBIN 7.1 g/dL (12.0-16.0); MEAN CORPUSCULAR HEMOGLOBIN 32 pg (27-31); MEAN CORPUSCULAR HGB CONC 34 % (32-36); MEAN CORPUSCULAR VOLUME 94 fL (79.0-98.0); PLATELET COUNT (AUTO) 105 K/uL (130-430); RED CELL DISTRIBUTION WIDTH 20.8 % (9.0-15.0); WHITE BLOOD COUNT (AUTO) 9.9 K/uL (4.8-10.8)
--- NOTE | 2018-01-09 07:30 | NUR ---
opening note pt asleep, equal chest rise noted. call light visibly within reach, with bed alarm in place, and bed in lowest position.ivf infusing well at this time. mother and father at bedside. safety maintained
[2018-01-09 07:32] LABS: HEMATOCRIT 20.7 % (36-48)
--- NOTE | 2018-01-09 07:56 | NUR ---
ATTENDING MD DR Grupo NELSON WAS CALLED RE: CRITICAL LABS. SPOKE TO .
[2018-01-09 08:00] VITALS: BP_SYST 115
[2018-01-09] MEDS: PANTOPRAZOLE SODIUM 40 MG TAB PO SCH (09:39)
[2018-01-09] MEDS: RIFAXIMIN 200 MG TABLET PO SCH (09:39)
[2018-01-09] MEDS: SPIRONOLACTONE 25 MG TABLET (ALDACTONE) PO SCH (09:40)
[2018-01-09] MEDS: FUROSEMIDE 40 MG TABLET PO SCH (09:41)
[2018-01-09] MEDS: PROPRANOLOL HCL 10 MG TABLET (INDERAL) PO SCH (09:41)
[2018-01-09] MEDS: CYANOCOBALAMIN 1000 mCg TABLET PO SCH (09:41)
[2018-01-09] MEDS: LACTULOSE 20 GM/30 ML UDC PO SCH ×2 (09:41→16:18)
[2018-01-09 09:42] LABS: BAND % (MANUAL) 1 % (0-6); BASOPHILS % (MANUAL) 0 % (0-2); EOSINOPHILS % (MANUAL) 2 % (0-7); LYMPHOCYTES % (MANUAL) 20 % (20-46); MONOCYTES % (MANUAL) 4 % (0-11)
[2018-01-09] MEDS: FLUoxetine HCL 10 MG CAPSULE (PROzac) PO SCH (09:43)
--- NOTE | 2018-01-09 09:49 | NUR ---
am meds morning meds given pt tolerated well. no distress noted. safety maintained.
--- NOTE | 2018-01-09 10:30 | NUR ---
DC PLanning: Together with dr. Martinez, and pt's parents at bedside spoke with pt. regarding her prognosis and plan of care. The pt. stated she drank the night before she was admitted to this hospital. She stated she wants to live and be treated but she can't stop smoking. She will try to stop drinking, " I will stop one thing at a time". Dr. Martinez provided her with POC which she agreed with [facility] for palliative care. CM to help arrange the meeting with her parents.
--- NOTE | 2018-01-09 11:26 | NUR ---
med pass ivpb zosyn hung at this time. safety maintained.
--- NOTE | 2018-01-09 11:29 | NUR ---
Penology Teacher Note: Pt has order for Palliative Consult. Dr. Martinez spoke with Pam from [facility] ([phone]/ cell [phone]/ [phone]) and Pam states that she is going to meet with pt and pt's family to provide consultation. Penology Teacher will continue to remain available and follow up as needed. Addendum: 01/09/18 at 1353 by Veronica Mccabe LCSW [facility] called and spoke with Pam of [facility] ([phone]). Pam states that at this time pt has not been signed on to hospice care, but pt has contact information for Pam if pt decides to enroll in hospice services. Penology Teacher will continue to remain available and follow up as needed. Addendum: 01/09/18 at 1753 by Veronica Mccabe LCSW MAILING MACHINE HELPER met with pt and pt's family at bedside due to request to speak with Commercial Title Examiner. MAILING MACHINE HELPER discussed hospice care with pt and pt's family. MAILING MACHINE HELPER provided emotional support. Pt states that she has decided that she would like to sign onto hospice care services with [facility]. MAILING MACHINE HELPER informed pt that MAILING MACHINE HELPER will contact [facility]. MAILING MACHINE HELPER called [facility] and spoke with [facility]. MAILING MACHINE HELPER informed [facility] that pt is agreeable to hospice services. [facility] states that Computer Numerical Control Programmer, Raudel, will be coming to speak with the pt today and sign pt onto hospice if pt is agreeable. MAILING MACHINE HELPER met with pt at bedside and informed pt that Raudel from [facility] will be coming to meet with the pt. As MAILING MACHINE HELPER was speaking with pt, Raudel walked into pt's room to meet with pt. Pt did not express any other needs or concerns at this time. MAILING MACHINE HELPER updated pt's Nurse, Angeline, and Charge Nurse, Noelle, regarding conversations with pt. Charge Nurse informed MAILING MACHINE HELPER that she spoke with pt's MD and obtained order for discharge home with hospice. There does not appear to be any further Social Service intervention required at this time.
[2018-01-09 12:01] VITALS: BP_SYST 133
--- NOTE | 2018-01-09 13:00 | NUR ---
PATIENT RESTING: Patient resting quietly. No acute distress noted. Vital signs within normal range.
--- NOTE | 2018-01-09 14:58 | NUR ---
Dietitian Recommendations * Recommend 2 gm Na, Ensure Enlive BID (oral supplement provides an additional 700 kcal/day and 40 gm protein/day) * PM snack daily LP, RD Please refer to Nutrition Assessment for details.
[2018-01-09 16:00] VITALS: BP_SYST 133
--- NOTE | 2018-01-09 16:19 | NUR ---
med pass lactulose given at this time. pt tolerated well , no diasters noted. Addendum: 01/09/18 at 1620 by Angeline Flores RN no distress noted .
--- NOTE | 2018-01-09 16:45 | NUR ---
CALLED PER POULTRY VETERINARIAN LILLIAM PATIENT IS AGREE FOR HOSPICE SERVICE. CALLED DR NESLON AND NOTIFIED.NEW ORDER RECEIVED FOR DISCHARGE HOME WITH HOSPICE. NURSE LORI AND LILLIAM POULTRY VETERINARIAN MADE AWARE. LILLIAM STATES SHE WILL CONTACT [facility].
[2018-01-09 17:37] VITALS: BP_SYST 133
--- NOTE | 2018-01-09 18:09 | NUR ---
[facility] at bedside speaking with patients family. patient verbalized that she is agreeable to be discharged home to day and bed admitted to hospice. mother agreeable as well. Addendum: 01/09/18 at 1921 by Angeline Flores RN pt was offered transportation per [facility] pt and patients parents refused transportation.
--- NOTE | 2018-01-09 19:00 | NUR ---
D/C Patient Patient given medication reconciliation form and D/C instructions. Exit Care provided. Patient verbalized understanding. MD discussed with patient the results and treatment provided.pt taken via wheelchair. Patient in stable condition, ID band removed. IV catheter removed, intact and dressing applied, no active bleeding. Patient educated on pain management. All belongings sent with patient.
== END 2018-01-09 18:58 | disposition hospice, home (50) | DRG 280 ==
LOC: SED 03:56 → STU 06:16
PROVIDERS: ADMIT General Practice; ATTEND General Practice
PROC: 0W9G3ZZ Drainage of Peritoneal Cavity, Percutaneous Approach (ICD-10-PCS; principal; 2018-01-08)
DX: K70.40 Alcoholic hepatic failure without coma (principal); K70.31 Alcoholic cirrhosis of liver with ascites; N17.0 Acute kidney failure with tubular necrosis; J69.0 Pneumonitis due to inhalation of food and vomit; E43 Unspecified severe protein-calorie malnutrition; J90 Pleural effusion, not elsewhere classified; K85.90 Acute pancreatitis without necrosis or infection, unspecified; K70.11 Alcoholic hepatitis with ascites; E87.1 Hypo-osmolality and hyponatremia; F11.20 Opioid dependence, uncomplicated; D64.9 Anemia, unspecified; F32.9 Major depressive disorder, single episode, unspecified; F10.20 Alcohol dependence, uncomplicated; F17.210 Nicotine dependence, cigarettes, uncomplicated; F60.3 Borderline personality disorder; G89.4 Chronic pain syndrome; N39.0 Urinary tract infection, site not specified; Z51.5 Encounter for palliative care; R74.0 Nonspecific elevation of levels of transaminase and lactic acid dehydrogenase [LDH]; Z68.24 Body mass index [BMI] 24.0-24.9, adult; Z86.73 Personal history of transient ischemic attack (TIA), and cerebral infarction without residual deficits; Z88.1 Allergy status to other antibiotic agents
CPT/HCPCS: 36415; 49083; 71045; 80053; 80307; 81000-TC; 82042; 82140-TC; 82150-TC; 82550-TC; 83036; 83690-TC; 83735-TC; 84157-TC; 84484; 85007; 85027; 85610-TC; 85730-TC; 87070-TC; 87086; 89051-TC; 93005; 94640; 94760; 96361; 96365; 96366; 96375; 99285; C1729; G0480; G0481; G0482; J2001; J2060; J2270; J2405; J2543; J3411; J3430; J3475; J3490; J7030; J7042; J7620; Q9964; Q9967